=== PATIENT | male | born 1995 | race Caucasian/White ===

== ENCOUNTER 2024-12-07 09:52 | Day surgery (SDC) | payer BC, SELFPAY ==
[2024-12-07] VITALS (13 sets, daily range): BP systolic 105–138; BP diastolic 70–99; PULSE 71–105; RESP 8–20; TEMP 36.1–37.1; O2SAT 93–100; BMI 26.7
[2024-12-07] MEDS: LACTATED RINGERS 1000 ML 1,000 ML 100 ML IV (10:45)
--- NOTE | 2024-12-07 12:14 | P.ANES_ITS ---
Anesthesia Charges Start Date/Time Anesthesia Start Date: 12/07/24 Anesthesia Start Time: 11:36 Stop Date/Time Anesthesia Stop Date: 12/07/24 Anesthesia Stop Time: 12:12 Coding CPT Codes CPT Codes: ANESTH PROCEDURE ON MOUTH - 62747 ([id number]) P2 - PATIENT W/MILD SYST DISEASE, QK - WATER TAXI FERRY OPERATOR 2-4 CNCRNT ANES PROC, QX - PROPAGATION WORKER SVC W/ MD MED DIRECTION
--- NOTE | 2024-12-07 12:14 | W.ANESCHARGE ---
Anesthesia Charges Start Date/Time Anesthesia Start Date: 12/07/24 Anesthesia Start Time: 11:36 Stop Date/Time Anesthesia Stop Date: 12/07/24 Anesthesia Stop Time: 12:12 Coding CPT Codes CPT Codes: ANESTH PROCEDURE ON MOUTH - 48044 ([id number]) P2 - PATIENT W/MILD SYST DISEASE, QK - SAMPLE MAKER ORIGINAL 2-4 CNCRNT ANES PROC, QX - COMPUTING TUTOR SVC W/ MD MED DIRECTION
--- NOTE | 2024-12-07 12:16 | P.ANES_ITS ---
Anesthesia Charges Start Date/Time Anesthesia Start Date: 12/07/24 Anesthesia Start Time: 11:36 Stop Date/Time Anesthesia Stop Date: 12/07/24 Anesthesia Stop Time: 12:12 Coding CPT Codes CPT Codes: ANESTH PROCEDURE ON MOUTH - 11882 ([id number]) QK - SUPERVISOR NUCLEAR MEDICINE 2-4 CNCRNT ANES PROC, QX - TATTOO TECHNICIAN SVC W/ MD MED DIRECTION, P2 - PATIENT W/MILD SYST DISEASE
--- NOTE | 2024-12-07 12:16 | W.ANESCHARGE ---
Anesthesia Charges Start Date/Time Anesthesia Start Date: 12/07/24 Anesthesia Start Time: 11:36 Stop Date/Time Anesthesia Stop Date: 12/07/24 Anesthesia Stop Time: 12:12 Coding CPT Codes CPT Codes: ANESTH PROCEDURE ON MOUTH - 99839 ([id number]) QK - DIRECTOR OF EPIDEMIOLOGY 2-4 CNCRNT ANES PROC, QX - THERMOMETER TESTER SVC W/ MD MED DIRECTION, P2 - PATIENT W/MILD SYST DISEASE
--- NOTE | 2024-12-07 12:20 | W.PM.ENTPROC ---
Procedure Note Date of procedure: 12/07/24 Procedure: Preop diagnosis chronic tonsillitis, tonsillar hypertrophy Postoperative diagnosis same Procedure tonsillectomy Under general trach anesthesia patient was prepped draped usual fashion. The McIvor mouth gag was inserted the tongue retracted forward. There was no significant adenoid tissue an indirect visualization with laryngeal mirror. The right tonsil was removed a combination of needlepoint a and bipolar cautery utilizing tube is active ice. Meticulous hemostasis was achieved with suction cautery. This was repeated on the left side in identical fashion. 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 The patient procedure well was taken recovery in satisfactory condition. Blood loss was 5 mL. Surgeon: Hermes Oliveira MD
--- NOTE | 2024-12-07 12:43 | SUR.PHASEI ---
patient met discharge criteria per anesthesia
== END 2024-12-07 14:13 | disposition home or self-care (01) ==
LOC: OR 09:52
PROVIDERS: PCP Student in an Organized Health Care Education/Training Program; Visit Provider Otolaryngology
PROC: (CPT 42826; principal; 2024-12-07 11:15)
DX: J35.01 Chronic tonsillitis (principal)
CPT/HCPCS: 42826; 00170; 88304; J0330; J1100; J2405; J2704; J3010; J7120

== ENCOUNTER 2024-12-17 07:03 | Day surgery (SDC) | payer BC, SELFPAY ==
[2024-12-17] VITALS (14 sets, daily range): BP systolic 117–142; BP diastolic 75–123; PULSE 92–109; RESP 10–20; TEMP 36.8–37.1; O2SAT 95–100; BMI 24.7
[2024-12-17] MEDS: LACTATED RINGERS 1000 ML 1,000 ML 35 ML IV (07:10)
[2024-12-17] MEDS: SODIUM CHLORIDE 0.9 % (FLUSH) 10 ML SYRINGE IVF (07:10)
[2024-12-17] MEDS: LACTATED RINGERS 1000 ML 1,000 ML 100 ML IV (07:25)
--- NOTE | 2024-12-17 07:30 | P.ENTCN_ITS ---
HPI- ENT Consult Date of Consult Date Seen: 12/17/24 Patient: [facility] Patient Consult date: 12/17/24 Requesting Physician: Other Primary Care Provider: Neymar Duke MD Consult Narrative Reason for consult: Post tonsillectomy bleed Narrative: Álvaro Morales is a 29 year old male had tonsillectomy 10 days ago. He dev eloped bleeding this morning. He rinse than initially. Then restarted. He was instructed to come to emergency [facility] Medical History (Updated 12/17/24 @ 07:31 by Hermes Oliveira MD) Post tonsillectomy secondary hemorrhage ?J95.830 - Postprocedural hemorrhage of a respiratory system organ or structure following a respiratory system procedure (ICD-10) Obstructive sleep apnea (adult) (pediatric) ?G47.33 - Obstructive sleep apnea (adult) (pediatric) (ICD-10) Family History (Updated 12/05/24 @ 10:30 by Oz De RN) Father High blood pressure Mother Diabetes Meds Home Medications and Allergies Home Medications ?Medication ?Instructions ?Recorded ?Confirmed ?Type ondansetron 4 mg disintegrating 4 mg PO Q8H #10 tabs 0 12/07/24 Rx tablet oxycodone 5 mg/5 mL oral solution 5 mg (5 mL) PO Q4-6H PRN pain #200 12/07/24 Rx mL Allergies Allergy/AdvReac Type Severity Reaction Status Date / Time No Known Drug Allergies Allergy Verified 12/07/24 10:27 Exam Narrative: Exam Narrative: General skin neuro respiratory gait peripheral vascular vocal quality skin of head neck are all negative except hemodynamically stable, mild active bleeding he is spitting into a bag Assessment and Plan Assessment and plan (1) Post tonsillectomy secondary hemorrhage: Status: Acute Plan Discussed options. Would favor to the operating room for cautery control as he has lost a significant amount of blood. Risks include repeat hemorrhage anesthesia aspiration etc. these were all reviewed he understands and informed consent was obtained
--- NOTE | 2024-12-17 07:32 | W.PM.ENTPROC ---
Procedure Note Date of procedure: 12/17/24 Procedure: Preop diagnosis right post tonsillectomy secondary hemorrhage Postoperative diagnosis same Procedure cautery control post tonsillectomy hemorrhage Under general trach anesthesia patient was prepped draped usual fashion. After intubation but bleeding resumed was fairly brisk. The McIvor mouth gag was inserted the tongue retracted forward. Bleeding appeared to be branch of lingual artery inferior right. This was compressed with a tonsil sponge. Surrounding clot was aspirated then the suction cautery was used to cauterize the bleeding vessel. This was easily accomplished. An NG tube was passed in low suction used to empty the stomach. There were approximately 200 mL of blood in the stomach. The patient was observed in the operating room no further bleeding was noted. The patient was extubated the operating room taken recovery in satisfactory condition. Hemoglobin will be drawn there. Estimated blood loss during procedure including gastric contents was 300 mL. Surgeon: Hermes Oliveira MD
--- NOTE | 2024-12-17 07:40 | P.ANES_ITS ---
Anesthesia Charges Start Date/Time Anesthesia Start Date: 12/17/24 Anesthesia Start Time: 07:07 Stop Date/Time Anesthesia Stop Date: 12/17/24 Anesthesia Stop Time: 07:38 Summary Emergency: AIR BRAKES INSPECTOR Coding CPT Codes CPT Codes: ANESTH PROCEDURE ON MOUTH - 88577 ([id number]) P2 - PATIENT W/MILD SYST DISEASE, QX - AIR BRAKES INSPECTOR SVC W/ MD MED DIRECTION, QK - SOFTWARE SOLUTIONS ARCHITECT 2-4 CNCRNT ANES PROC Additional Codes: Summary - Extremes of Age - Over 70 or under 1: [id number] 1 W.PM.ANESCHARGES 1 3 W.ANESAGES Summary - Emergency: AIR BRAKES INSPECTOR ([id number])
--- NOTE | 2024-12-17 07:40 | W.ANESCHARGE ---
Anesthesia Charges Start Date/Time Anesthesia Start Date: 12/17/24 Anesthesia Start Time: 07:07 Stop Date/Time Anesthesia Stop Date: 12/17/24 Anesthesia Stop Time: 07:38 Summary Emergency: TELECOM NETWORK MANAGER Coding CPT Codes CPT Codes: ANESTH PROCEDURE ON MOUTH - 16356 ([id number]) P2 - PATIENT W/MILD SYST DISEASE, QX - TELECOM NETWORK MANAGER SVC W/ MD MED DIRECTION, QK - LOG DECKMAN 2-4 CNCRNT ANES PROC Additional Codes: Summary - Extremes of Age - Over 70 or under 1: [id number] 1 W.PM.ANESCHARGES 1 3 W.ANESAGES Summary - Emergency: TELECOM NETWORK MANAGER ([id number])
[2024-12-17 07:45] LABS: Hemoglobin* 11.6 gm/dL (13.5-17.5)
--- NOTE | 2024-12-17 07:54 | P.ANES_ITS ---
Anesthesia Charges Start Date/Time Anesthesia Start Date: 12/17/24 Anesthesia Start Time: 07:07 Stop Date/Time Anesthesia Stop Date: 12/17/24 Anesthesia Stop Time: 07:38 Summary Emergency: GABRIELA Coding CPT Codes CPT Codes: ANESTH PROCEDURE ON MOUTH - 94619 ([id number]) P2 - PATIENT W/MILD SYST DISEASE, QK - MULTIGRAPHER 2-4 CNCRNT ANES PROC, QX - MINE SHIFTER SVC W/ MD MED DIRECTION Additional Codes: Summary - Emergency: GABRIELA ([id number])
--- NOTE | 2024-12-17 07:54 | W.ANESCHARGE ---
Anesthesia Charges Start Date/Time Anesthesia Start Date: 12/17/24 Anesthesia Start Time: 07:07 Stop Date/Time Anesthesia Stop Date: 12/17/24 Anesthesia Stop Time: 07:38 Summary Emergency: GABRIELA Coding CPT Codes CPT Codes: ANESTH PROCEDURE ON MOUTH - 82527 ([id number]) P2 - PATIENT W/MILD SYST DISEASE, QK - CAR CHASER 2-4 CNCRNT ANES PROC, QX - CUFF TURNER SVC W/ MD MED DIRECTION Additional Codes: Summary - Emergency: GABRIELA ([id number])
== END 2024-12-17 09:40 | disposition home or self-care (01) ==
PROVIDERS: PCP Student in an Organized Health Care Education/Training Program; Visit Provider Otolaryngology
PROC: (CPT 42960; principal; 2024-12-17 07:15)
DX: J95.830 Postprocedural hemorrhage of a respiratory system organ or structure following a respiratory system procedure (principal); G47.33 Obstructive sleep apnea (adult) (pediatric)
CPT/HCPCS: 42962; 00170; 36415; 85018; 99140; J0330; J1100; J2405; J2704; J3010; J7120